=== PATIENT | male | born 1980 | race Caucasian/White ===

== ENCOUNTER 2023-01-08 01:09 | Emergency (ER) | payer MEDICAID ==
[~2023-01-08] VITALS: Ht 175.3 cm; Wt 127.0 kg
[2023-01-08 01:43] VITALS: BP_SYST 132
== END 2023-01-08 02:22 | disposition home or self-care (01) ==
LOC: SED 01:09
DX: R61 Generalized hyperhidrosis (principal); F43.9 Reaction to severe stress, unspecified; F41.9 Anxiety disorder, unspecified; Z79.899 Other long term (current) drug therapy
CPT/HCPCS: 99281